=== PATIENT | male | born 2000 | race Caucasian/White ===

== ENCOUNTER 2023-04-10 17:40 | Emergency (ER) | payer OTHER ==
[~2023-04-10] VITALS: Ht 170.2 cm; Wt 61.7 kg
[2023-04-10 18:00] VITALS: BP 143/72; PULSE 75; RESP 18; TEMP 98.7; O2SAT 99
[2023-04-10] MEDS ORDERED: IBUPROFEN 600 MG TAB PO ONE (18:15)
[2023-04-10] MEDS ORDERED: IBUP-2213 PO (18:57)
[2023-04-10] MEDS ORDERED: AMOX1TAB8 PO (18:57)
[2023-04-10] MEDS ORDERED: BACI-418 TP (18:57)
[2023-04-10] MEDS ORDERED: BACITRACIN OINT 500 UNITS/GM PKT TP ONE ×2 (19:02→19:05)
[2023-04-10 19:25] VITALS: BP 114/77; PULSE 75; RESP 16; O2SAT 98
== END 2023-04-10 19:25 | disposition home or self-care (01) ==
LOC: MED 17:40
DX: S61.551A Open bite of right wrist, initial encounter (principal); S61.451A Open bite of right hand, initial encounter; Z79.1 Long term (current) use of non-steroidal anti-inflammatories (NSAID); Z79.2 Long term (current) use of antibiotics; W54.0XXA Bitten by dog, initial encounter; Y93.89 Activity, other specified; Y92.89 Other specified places as the place of occurrence of the external cause; Y99.8 Other external cause status
CPT/HCPCS: 90471; 90715; 99283